=== PATIENT | male | born 1965 | race Caucasian/White ===

== ENCOUNTER 2018-09-01 06:49 | Day surgery (SDC) | payer OTHER ==
[2018-09-01] MEDS ORDERED: PROPOFOL 60 ML (09:21)
[2018-09-01] MEDS ORDERED: LIDOCAINE 2% (SDV) 5 ML INJ (09:21)
[2018-09-01] MEDS ORDERED: LABETALOL HCL 20MG INJ IV (09:30)
[2018-09-01] MEDS ORDERED: FENTAnyl 50 MCG/ML VIAL IV ×2 (09:30)
[2018-09-01] MEDS ORDERED: hydrALAzine 20 MG INJ IV (09:30)
[2018-09-01] MEDS ORDERED: EPHEDrine SULFATE 50 MG/5 ML SYG IV (09:30)
[2018-09-01] MEDS ORDERED: ONDANSETRON 4 MG INJ IV (09:30)
== END 2018-09-01 10:39 | disposition home or self-care (01) ==
LOC: GIL 06:49
DX: Z12.11 Encounter for screening for malignant neoplasm of colon (principal); K64.1 Second degree hemorrhoids; K57.30 Diverticulosis of large intestine without perforation or abscess without bleeding
CPT/HCPCS: 45378